=== PATIENT | female | born 1970 | race Caucasian/White ===

== ENCOUNTER → 2019-04-25 | Outpatient (CLI) | payer BC | LOC: MAMMO 09:51 | DX: Z12.31 Encounter for screening mammogram for malignant neoplasm of breast (principal) ==

== ENCOUNTER 2020-09-20 14:19 | Outpatient (RCR) | payer BC | END 2020-12-19 | disposition home or self-care (01) | LOC: PT | DX: M25.551 Pain in right hip (principal) ==

== ENCOUNTER → 2024-03-15 | Outpatient (CLI) | payer BC | LOC: RAD 13:33 | DX: S29.9XXA Unspecified injury of thorax, initial encounter (principal) ==